=== PATIENT | female | born 1980 | race Caucasian/White ===

== ENCOUNTER 2022-04-22 05:12 | Inpatient (IN) | payer OTHER ==
[~2022-04-22 05:12] MED LIST: BENADRYL 50 MG/ML IV PRN; CLARITIN 10 MG PO PRN; LANSINOH 40 GM TOP PRN; Mylicon 80MG PO PRN; Nubain 10 MG/ML IV PRN; Pepcid 20 MG VIAL IV SCH; Reglan 10 MG/2 ML IV SCH; SOD CITRATE-CITRIC ACID SOLN PO SCH; Zofran 4 MG/2 ML VIAL IV PRN
[2022-04-22] MEDS ORDERED: TRANDATE 100MG/20 ML MDV IV ONE (06:22)
[2022-04-22] MEDS ORDERED: TRANDATE 100MG/20 ML MDV IV PRN ×2 (06:22)
[2022-04-22] MEDS ORDERED: TRANDATE 100 MG/20 ML MDV FOR DRIP IV ONE (06:29)
[2022-04-22 06:38] LABS: INR 0.92 (0.8-3.0); PROTIME 9.8 SECONDS (9.4-12.5); PTT 27.1 SECONDS (25.1-36.5)
[2022-04-22 07:03] LABS: Absolute Neutrophil Ct (ANC) 10.55 x10^3/uL (1.4-6.9); Basophil (Absolute #) 0.03 x10^3/uL (0-0.4); Eosinophil % 0.7 % (0.00-5.0); Hematocrit 35.8 % (35-47); Hemoglobin 11.8 g/dL (12.0-16.0); Lymphocyte (Absolute #) 2.21 x10^3/uL (1.0-4.6); Mean Cell Volume 90.4 fL (78-100); Mean Corpuscular Hemoglobin 29.8 pg (26-32); Mean Platelet Volume 10.3 fL (7.5-11.0); Monocytes % 5.8 % (0.0-12.0); Neutrophil % 76.7 % (36.0-66.0); Platelet Count 281 x10^3/uL (150-450); Red Blood Count 3.96 x10^6/uL (4.1-5.4); Red Cell Distribution Width 13.3 % (11.5-14.0); White Blood Count 13.8 x10^3/uL (4.0-10.5)
[2022-04-22] MEDS: Lactated Ringers 1,000 ML IV SCH (07:03)
[2022-04-22] MEDS ORDERED: Pepcid 20 MG VIAL IV ONE ×3 (07:11→09:57)
[2022-04-22] MEDS ORDERED: Reglan 10 MG/2 ML ONE (07:11)
[2022-04-22] MEDS ORDERED: SOD CITRATE-CITRIC ACID SOLN ONE (07:11)
[2022-04-22 07:18] LABS: ALBUMIN 3.5 g/dL (3.5-5.0); ALKALINE PHOSPHATASE 128 U/L (38-126); ANION GAP 11.3 MEQ/L (5-15); BLOOD UREA NITROGEN 12 mg/dL (7-17); CHLORIDE 106 mmol/L (98-107); Calcium 9.3 mg/dL (8.4-10.2); Carbon Dioxide 20 mmol/L (22-30); EST GLOMERULAR FILTRATION RATE > 60.0 ML/MIN; Glucose 131 mg/dL (74-106); Potassium 3.9 mmol/L (3.5-5.1); SGOT/AST 30 U/L (14-36); SGPT/ALT 20 U/L (0-35); SODIUM 133 mmol/L (137-145)
[2022-04-22] MEDS ORDERED: CEFAZOLIN 2 GM-D5W BAG** 2 GM/50 ML ML IV SCH (07:30)
[2022-04-22 07:38] LABS: Amphetamine,Urine NEGATIVE (NEGATIVE); Barbiturate,Urine NEGATIVE (NEGATIVE); Benzodiazepine,Urine NEGATIVE (NEGATIVE); Cocaine,Urine NEGATIVE (NEGATIVE); Methadone,Urine NEGATIVE (NEGATIVE); Opiate,Urine NEGATIVE (NEGATIVE); PCP,Urine NEGATIVE (NEGATIVE); THC,Urine NEGATIVE (NEGATIVE)
[2022-04-22 07:49] LABS: Creatinine, Urine Random 126.3 mg/dl; Protein Creatinine Ratio, Ran. 0.13 mg/mg (0.0-0.15)
[2022-04-22] MEDS ORDERED: Reglan 10 MG/2 ML IV ONE (09:44)
[2022-04-22] MEDS ORDERED: SOD CITRATE-CITRIC ACID SOLN PO ONE (09:45)
[2022-04-22] MEDS ORDERED: HOLD NARCOTIC ANALGESICS AND SEDATIVES X24 HR MC PRN (10:00)
[2022-04-22] MEDS ORDERED: PERCOCET TABLET 5/325MG PO PRN (10:00)
[2022-04-22] MEDS ORDERED: Narcan 0.4 MG/ML IV PRN (10:00)
[2022-04-22] MEDS ORDERED: Astramorph-Pf 5 MG/10 ML ONE (10:35)
[2022-04-22] MEDS ORDERED: Pitocin 10 UNITS/ML ONE ×2 (10:36→11:40)
[2022-04-22] MEDS ORDERED: Ephedrine Sulfate 50 MG/ML ONE (11:11)
[2022-04-22] MEDS ORDERED: Decadron 4 MG INJ ONE (11:26)
[2022-04-22] MEDS ORDERED: Marcaine 0.5%/Epinephrine 10 ML ONE (11:26)
[2022-04-22] MEDS ORDERED: TORAdol 30 mg Injection ONE (11:26)
[2022-04-22] MEDS ORDERED: Zofran 4 MG/2 ML VIAL ONE (12:15)
[2022-04-22] MEDS ORDERED: Lactated Ringers 2,000 ML IV ONE (12:16)
[2022-04-22 13:29] LABS: Appearance CLEAR (CLEAR); Bilirubin NEGATIVE (NEGATIVE); Blood TRACE NON-HEM Ery/ul (0-5); Glucose NEGATIVE (NEGATIVE); Ketones NEGATIVE (NEGATIVE); Leukocyte Esterase NEGATIVE (NEGATIVE); Nitrite NEGATIVE (NEGATIVE); Protein,Urine Dip NEGATIVE (Negative); Specific Gravity >=1.030 (1.005-1.025); Urobilinogen 0.2 mg/dL (0-1)
[2022-04-22 13:36] LABS: Epithelial Cells RARE /HPF (FEW); Mucus SLIGHT /HPF (NEGATIVE); WBC 0-2 /HPF (0-5)
[2022-04-22] MEDS ORDERED: Adacel Vial IM ONE (15:00)
[2022-04-22] MEDS ORDERED: KEFZOL 1 GM** 3 G in Sodium Chloride 0.9% 50 ML 50 ML IV ONE (19:00)
[2022-04-22] MEDS ORDERED: Dextrose 5%-Lr IV Solution 1000 ML 1,000 ML IV ONE (20:57)
[2022-04-22] MEDS: Adalat CC 30 MG TABLET PO SCH (20:59)
[2022-04-22] MEDS: Dextrose 5%-Lr IV Solution 1000 ML 1,000 ML IV SCH (21:05)
[2022-04-23] MEDS ORDERED: KEFZOL 1 GM** 3 G in Sodium Chloride 0.9% 50 ML 50 ML IV ONE (03:00)
[2022-04-23 05:38] LABS: Absolute Neutrophil Ct (ANC) 15.31 x10^3/uL (1.4-6.9); Basophil (Absolute #) 0.03 x10^3/uL (0-0.4); Eosinophil % 0.1 % (0.00-5.0); Eosinophil (Absolute #) 0.01 x10^3/uL (0-0.5); Hematocrit 29.6 % (35-47); Hemoglobin 9.7 g/dL (12.0-16.0); Lymphocyte (Absolute #) 1.86 x10^3/uL (1.0-4.6); Mean Cell Volume 91.6 fL (78-100); Mean Corpuscular Hgb Concent. 32.8 g/dL (32-36); Mean Platelet Volume 10.9 fL (7.5-11.0); Monocyte (Absolute #) 1.32 x10^3/uL (0.0-1.3); Monocytes % 7.1 % (0.0-12.0); Neutrophil % 82.1 % (36.0-66.0); Platelet Count 231 x10^3/uL (150-450); Red Blood Count 3.23 x10^6/uL (4.1-5.4); Red Cell Distribution Width 13.4 % (11.5-14.0); White Blood Count 18.6 x10^3/uL (4.0-10.5)
[2022-04-23] MEDS ORDERED: NORCO 5/325 MG PO PRN (08:00)
--- NOTE | 2022-04-23 08:08 | PCM.NOTE ---
Date and Time: 04/23/22804 Subjective Assessment: pod 1 sp csection pt resting in bed doing well ambulating and tolerating diet. vss afebrile abd; soft incision with dressing intact with minimal soiling uterus; firm lochia; mild hgb; 9.7 a/p sp csection with chronic htn will continue procardia anticipate discharge tomorrow OBJECTIVE DATA Vital Signs: Vital Signs - 24 hr Temp Pulse Resp BP BP Pulse Ox 04/23/22 07:00 97 04/23/22 06:24 97 04/23/22 06:00 98.8 F 73 18 157/83 98 04/23/22 04:52 96 04/23/22 04:00 96 04/23/22 03:00 98.5 F 67 18 136/63 97 04/23/22 02:00 96 04/23/22 01:00 96 04/23/22 00:00 96 04/22/22 23:55 98.4 F 61 20 159/72 96 04/22/22 23:00 96 04/22/22 22:00 97 04/22/22 21:00 98.6 F 69 20 187/82 97 04/22/22 20:00 97 04/22/22 19:00 97 04/22/22 18:00 97 04/22/22 17:25 54 L 154/68 97 04/22/22 17:00 52 L 139/63 97 04/22/22 16:00 97 04/22/22 15:00 52 L 20 139/63 98 04/22/22 14:15 58 L 20 123/59 98 04/22/22 14:00 58 L 20 119/57 97 04/22/22 13:30 67 18 150/74 98 04/22/22 13:00 52 L 18 142/68 98 04/22/22 10:00 143/70 04/22/22 08:45 65 142/82 201/98 97 04/22/22 08:30 56 L 142/66 142/66 04/22/22 08:11 65 142/82 97 Pain Assessment - Last Documented Pain Intensity [Bilateral 1 Lower] Pain Intensity 1 Pain Scale Used 0-10 Pain Scale Intake and Output: Intake & Output 04/20/22 04/21/22 04/22/22 04/23/22 11:59 11:59 11:59 11:59 Intake Total 1999 372 Output Total 3250 Balance 1999 47 Weight 129.5 kg Lab Results: Lab Results-Last 24 Hours 04/22/22 04/23/22 Range/Units 13:10 04:22 WBC 18.6 H (4.0-10.5) x10^3/uL RBC 3.23 L (4.1-5.4) x10^6/uL Hgb 9.7 L (12.0-16.0) g/dL Hct 29.6 L (35-47) % MCV 91.6 (78-100) fL MCH 30.0 (26-32) pg MCHC 32.8 (32-36) g/dL RDW 13.4 (11.5-14.0) % Plt Count 231 (150-450) x10^3/uL MPV 10.9 (7.5-11.0) fL Gran % 82.1 H (36.0-66.0) % Immature Gran % (Auto) 0.5 H (0.00-0.4) % Nucleat RBC Rel Count 0.0 (0.00-0.1) % Eos # (Auto) 0.01 (0-0.5) x10^3/uL Immature Gran # (Auto) 0.10 H (0.00-0.03) x10^3u/L Absolute Lymphs (auto) 1.86 (1.0-4.6) x10^3/uL Absolute Monos (auto) 1.32 H (0.0-1.3) x10^3/uL Absolute Nucleated RBC 0.00 (0.00-0.01) x10^3u/L Lymphocytes % 10.0 L (24.0-44.0) % Monocytes % 7.1 (0.0-12.0) % Eosinophils % 0.1 (0.00-5.0) % Basophils % 0.2 (0.0-0.4) % Absolute Granulocytes 15.31 H (1.4-6.9) x10^3/uL Basophils # 0.03 (0-0.4) x10^3/uL Urine Color YELLOW (YELLOW) Urine Appearance CLEAR (CLEAR) Urine pH 6.0 (5-6) Ur Specific [place] >=1.030 (1.005-1.025) Urine Protein NEGATIVE (Negative) Urine Ketones NEGATIVE (NEGATIVE) Urine Blood TRACE NON-HEM (0-5) Luis/ul Urine Nitrite NEGATIVE (NEGATIVE) Urine Bilirubin NEGATIVE (NEGATIVE) Urine Urobilinogen 0.2 (0-1) mg/dL Ur Leukocyte Esterase NEGATIVE (NEGATIVE) Urine WBC (Auto) 0-2 (0-5) /HPF Urine RBC (Auto) 6-10 A (0-2) /HPF U Epithel Cells (Auto) RARE (FEW) /HPF Urine Bacteria (Auto) NONE (NEGATIVE) /HPF Urine Mucus (Auto) SLIGHT A (NEGATIVE) /HPF Urine Glucose NEGATIVE (NEGATIVE) mg/dL Multi-Disciplinary Progress Notes: Multi-Disciplinary Progress Notes 04/22/22 12:26 Respiratory Note by Celia Somers RT PRESENT DURING C SECTION. APPROXIMATELY 7CC OF FLUID SUCTIONED FROM AIRWAY VIA DELEE. NO OTHER RESPIRATORY INTERVENTIONS REQUIRED. Initialized on 04/22/22 12:26 - END OF NOTE Assessment/Plan (1) Gestational hypertension Current Visit: Yes Status: Acute Code(s): O13.9 - GESTATIONAL HTN W/O SIGNIFICANT PROTEINURIA, UNSP TRIMESTER (2) Status post repeat low transverse section Current Visit: Yes Status: Acute Code(s): Z98.891 - HISTORY OF UTERINE SCAR FROM PREVIOUS SURGERY
--- NOTE | 2022-04-23 08:49 | OP ---
SURGERY DATE/TIME: 04/22/2022 1042 PREOPERATIVE DIAGNOSIS: Intrauterine at 37 weeks and 2 days gestation with history of chronic hypertension, previous section x2 for repeat section and tubal sterilization. POSTOPERATIVE DIAGNOSIS: Intrauterine at 37 weeks and 2 days gestation with history of chronic hypertension, previous section x2 for repeat section and tubal sterilization. PROCEDURES: 1) Repeat section, low flap transverse uterine incision, Pfannenstiel skin incision. 2) Bilateral tubal sterilization. SURGEON: Edin Javed D.O. SENIOR PROJECT MANAGER ENGINEERING: Kimberli Nugent, validation technician. ANESTHESIA: Spinal. ESTIMATED BLOOD LOSS: 400 cc. COMPLICATIONS: None. INDICATIONS: The risks, benefits, indications and alternatives of the procedure were reviewed with the patient prior to procedure. The patient understood the risk of infection, bleeding, bowel injury, bladder injury, ureteral injury, pelvic infection, thromboembolic disorder associated with this surgery and desires to have this surgery as a possible means to alleviate her current medical condition. The patient also understood the risk of future and ectopic that may be associated with this procedure. DESCRIPTION OF PROCEDURE AND FINDINGS: From this point the patient is taken to the operating room where her spinal anesthesia was found to adequate. She was then prepared and draped in normal sterile fashion in the dorsal supine position with leftward tilt. A Pfannenstiel skin incision is made with a scalpel and carried through to the underlying layer of the fascia with a Bovie. The fascia was then incised in the midline and the incision extended laterally with Swenson scissors. The superior aspect of the fascial incision was then grasped Gisela clamps elevated and the underlying rectus muscles dissected off bluntly. Attention is then turned to the inferior aspect of this incision which in similar fashion was grasped, tented up with Gisela clamps and the rectus muscles were dissected off bluntly. The rectus muscles were then in the midline and the peritoneum identified, tented up and entered sharply with Metzenbaum scissors. The peritoneal incision was then extended superiorly and inferiorly with good visualization of the bladder. The bladder blade was then inserted and the vesicouterine peritoneum identified, grasped with pickups and entered sharply with Metzenbaum scissors. This incision was then extended laterally and bladder flap created digitally. A bladder blade was then reinserted in the lower uterine segment and excised with transverse fashion with a scalpel. The uterus was then extended laterally with bandage scissors. The bladder blade was then removed and the infants head was delivered atraumatically and was noted to have nuchal cord x1 which was reduced. The nose and mouth were suctioned with bulb suction and the cord clamped and cut. The infant was then handed off to the awaiting nurses. The placenta was then removed manually. The uterus exteriorized and cleared of all clots and debris. The uterine incision was repaired with 1-0 chromic in running locked fashion. A second layer of the same suture was used to obtain excellent hemostasis. From this point a Dewayne clamp was placed approximately 4 cm from the cornual region of the uterus and a 3 cm segment of the tube was then ligated with free tie of plain gut and excised. Good hemostasis was assured. The same procedure was performed on the right tube where the Dewayne clamp was then used to grasp tube approximately 4 cm from the cornual region and again a 3 cm segment of tube was then ligated with free tie of plain gut and excised. Again, good hemostasis was assured. From this point, the gutters were cleared of all clots. The uterus then reinserted into the abdomen. From this point the peritoneal muscles were closed in interrupted fashion using 2-0 chromic suture. The fascia was re-approximated with 0 Vicryl in a running fashion. The subcutaneous layer was closed with 3-0 Vicryl suture and the skin was closed with absorbable saurav called INSORB. The patient tolerated the procedure well. Sponge, lap, needle and instrument counts were correct x2. The patient was then taken to the recovery room in stable condition. The patient delivered a live baby boy at 1119 hours. 's 8 at 1 minute and 9 at 5 minutes. The weight of the baby was 6 pounds 5 ounces.
[2022-04-23 09:17] LABS: HBsAg Screen Negative (Negative)
[2022-04-23] MEDS: Docusate Sodium 100 MG PO SCH ×4 (09:30→21:01)
[2022-04-23] MEDS: FERREX 150 PO SCH ×2 (09:31→20:52)
[2022-04-23] MEDS ORDERED: ENOXAPARIN SODIUM SQ ONE (10:00)
[2022-04-23] MEDS: TYLENOL EXTRA STRENGTH 500 MG PO PRN (14:42)
[2022-04-23] MEDS: Lactated Ringers 1,000 ML IV SCH (20:48)
[2022-04-23] MEDS: Dextrose 5%-Lr IV Solution 1000 ML 1,000 ML IV SCH (20:51)
[2022-04-23] MEDS: Adalat CC 30 MG TABLET PO SCH (20:52)
[2022-04-23] MEDS: MOTRIN 400 MG PO PRN (21:01)
[2022-04-23] MEDS ORDERED: Adalat CC 30 MG TABLET PO SCH (22:00)
[2022-04-24] MEDS: TYLENOL EXTRA STRENGTH 500 MG PO PRN (01:16)
--- NOTE | 2022-04-24 07:48 | PCM.NOTE ---
Date and Time: 04/24/22 0746 Subjective Assessment: pod 2 sp csection pt resting in bed and doing well ambulating and tolerating diet. vss afebrile abd; soft incision with dressing intact with no soiling uterus; firm lochia;mild a/p sp csection with tubal sterilization pod 2 dc home today fu office 1 wk OBJECTIVE DATA Vital Signs: Vital Signs - 24 hr Temp Pulse Resp BP BP Pulse Ox 04/24/22 02:00 98.3 F 69 18 138/65 97 04/23/22 19:45 98.3 F 84 19 138/60 97 04/23/22 16:00 98.0 F 68 20 133/65 98 04/23/22 12:00 98.0 F 73 20 138/63 98 04/23/22 11:00 98 04/23/22 10:00 98 04/23/22 09:00 97 04/23/22 08:00 98.3 F 72 20 123/59 96 Pain Assessment - Last Documented Pain Intensity [Bilateral 1 Lower] Pain Intensity 0 Pain Scale Used 0-10 Pain Scale Intake and Output: Intake & Output 04/21/22 04/22/22 04/23/22 04/24/22 11:59 11:59 11:59 11:59 Intake Total 1999 3722 1080 Output Total 3250 Balance 1999 472 1080 Weight 129.5 kg Lab Results: Lab Results-Last 24 Hours 04/22/22 Range/Units 05:44 Hep Bs Antigen Negative (Negative) Assessment/Plan (1) Gestational hypertension Current Visit: Yes Status: Acute Code(s): O13.9 - GESTATIONAL HTN W/O SIGNIFICANT PROTEINURIA, UNSP TRIMESTER (2) Status post repeat low transverse section Current Visit: Yes Status: Acute Code(s): Z98.891 - HISTORY OF UTERINE SCAR FROM PREVIOUS SURGERY
--- NOTE | 2022-04-24 07:50 | PCM.DS ---
Discharge Summary Date of Admission: 04/22/22 05:12 Admitting Physician: ALPHONSO PARSONS DO Consults: Consults on Case 04/21/22 18:41 Notify Physician OF ADMISSION 04/21/22 18:56 Notify Anesthesia Provider PRN 04/22/22 06:12 Navigation ONCE Primary Care Provider: NELSON ARIAS NP Allergies Allergies prochlorperazine edisylate [From Compazine] Allergy (Mild, Verified 04/23/22 20:57) prochlorperazine maleate [From Compazine] Allergy (Mild, Verified 04/23/22 20:57) promethazine HCl [From Phenergan] Allergy (Mild, Verified 04/23/22 20:57) Hospital Summary - Hospital Course Hospital Course: pt admitted on apr 22 for repeat csection with tubal sterilization for chronic htn on procardia and underwent procedure without complication. during postop period did well and stable hgb at 9.7. pt at this time stable for discharge and was advised to fu in office in 1 wk. declines narcotic for pain management at this time. - Vitals & Intake/Output Vital Signs: Vital Signs Temperature 98.3 F 04/24/22 02:00 Pulse Rate 69 04/24/22 02:00 Respiratory Rate 18 04/24/22 02:00 Blood Pressure 138/65 04/24/22 02:00 O2 Sat by Pulse Oximetry 97 04/24/22 02:00 Intake & Output: Intake & Output 04/21/22 04/22/22 04/23/22 04/24/22 11:59 11:59 11:59 11:59 Intake Total 1999 3722 1080 Output Total 0 Balance 1999 472 1080 Weight 129.5 kg - Lab Result Diagrams: 04/23/22 04:22 04/22/22 05:44 Lab Results-Last 24 Hrs: Lab Results-Last 24 Hours 04/22/22 Range/Units 05:44 Hep Bs Antigen Negative (Negative) Micro Results-Entire Visit: Microbiology 04/22/22 13:10 Urine Culture - Preliminary Catherized NO GROWTH TO DATE - Procedures and Test Procedures and Tests throughout Hospitalization: Therapy Orders & Screens 04/22/22 12:27 Standby ROUTINE Comment: Diagnosis: IUP Final Diagnosis/Problem List - Final Discharge Diagnosis/Problem (1) Gestational hypertension Current Visit: Yes Status: Acute Code(s): O13.9 - GESTATIONAL HTN W/O SIGNIFICANT PROTEINURIA, UNSP TRIMESTER (2) Status post repeat low transverse section Current Visit: Yes Status: Acute Code(s): Z98.891 - HISTORY OF UTERINE SCAR FROM PREVIOUS SURGERY - Discharge Disposition: Home, Self-Care Condition: Stable Prescriptions: No Action NIFEdipine [Nifedipine ER] See Rx Instructions .ROUTE .COMPLEX Aspirin 81 gm Chew [Baby Aspirin 81 mg Chew] 81 mg PO DAILY Follow up with: NELSON ARIAS ADDICTION COUNSELOR [Primary Care Provider] - ALPHONSO PARSONS DO [ACTIVE STAFF] - 1 Week (keep incision clean and dry)
[2022-04-24] MEDS: Docusate Sodium 100 MG PO SCH (08:56)
[2022-04-24] MEDS: FERREX 150 PO SCH (08:56)
[2022-04-24] MEDS: MOTRIN 400 MG PO PRN (10:00)
[2022-04-24 13:06] VITALS: BP 145/85
[2022-04-24 14:38] VITALS: PULSE 73; O2SAT 99
== END 2022-04-24 10:10 | disposition home or self-care (01) | DRG 785 ==
LOC: OB 05:12
PROVIDERS: ADMIT Obstetrics & Gynecology; ATTEND Obstetrics & Gynecology
PROC: 10D00Z1 Extraction of Products of Conception, Low, Open Approach (ICD-10-PCS; principal; 2022-04-22)
PROC: 0UB70ZZ Excision of Bilateral Fallopian Tubes, Open Approach (ICD-10-PCS; 2022-04-22)
DX: O13.4 Gestational [pregnancy-induced] hypertension without significant proteinuria, complicating childbirth (principal); Z3A.37 37 weeks gestation of pregnancy; Z37.0 Single live birth; Z30.2 Encounter for sterilization; Z20.828 Contact with and (suspected) exposure to other viral communicable diseases
CPT/HCPCS: 36415; 58700; 59510; 62322; 64488; 76937; 76942; 80053; 80307; 81001; 82570; 84156; 84550; 85025; 85610; 85730; 86901; 87086; 87340; 90471; 90715; 94799; J0690; J1100; J1650; J1885; J2274; J2405; J2590; L0625; A9270-GY

== ENCOUNTER 2023-06-10 14:15 | Emergency (ER) | payer OTHER ==
[2023-06-10 14:31] VITALS: TEMP 97.4
[2023-06-10 15:56] VITALS: RESP 16; O2SAT 98
[2023-06-10 16:14] LABS: Absolute Neutrophil Ct (ANC) 5.16 x10^3/uL (1.4-6.9); BASOPHIL % 0.5 % (0.0-0.4); Basophil (Absolute #) 0.04 x10^3/uL (0-0.4); Eosinophil % 1.2 % (0.00-5.0); Hematocrit 38.9 % (35-47); Hemoglobin 12.6 g/dL (12.0-16.0); IMMATURE GRAN # 0.04 x10^3u/L (0.00-0.03); IMMATURE GRAN % 0.5 % (0.00-0.4); Lymphocytes % 28.9 % (24.0-44.0); Mean Cell Volume 88.6 fL (78-100); Mean Corpuscular Hemoglobin 28.7 pg (26-32); Mean Corpuscular Hgb Concent. 32.4 g/dL (32-36); Mean Platelet Volume 9.2 fL (7.5-11.0); Monocyte (Absolute #) 0.56 x10^3/uL (0.0-1.3); Monocytes % 6.7 % (0.0-12.0); Neutrophil % 62.2 % (36.0-66.0); Platelet Count 297 x10^3/uL (150-450); Red Blood Count 4.39 x10^6/uL (4.1-5.4); White Blood Count 8.3 x10^3/uL (4.0-10.5)
--- NOTE | 2023-06-10 16:25 | XRAY ---
Indication: Hypertension. Comparison: October 10, 2012 Portable chest again demonstrates normal heart and lungs. Bony thorax intact with mild degenerative changes. No new/acute findings.
[2023-06-10 16:32] LABS: HCG SERUM TEST NEGATIVE (NEGATIVE)
[2023-06-10 16:36] LABS: ALBUMIN 4.5 g/dL (3.5-5.0); ANION GAP 8.7 MEQ/L (5-15); BILIRUBIN,TOTAL 0.3 mg/dL (0.2-1.3); Calcium 9.1 mg/dL (8.4-10.2); Creatinine 1 0.72 mg/dL (0.52-1.04); NT PRO BNPII 70.8 pg/mL (<300); Potassium 3.8 mmol/L (3.5-5.1); Total Protein 7.9 g/dL (6.3-8.2)
[2023-06-10] MEDS ORDERED: CLONIDINE 0.1 MG TABLET ONE (17:54)
[2023-06-10] MEDS: CLONIDINE 0.1 MG TABLET PO ONE (17:55)
--- NOTE | 2023-06-10 18:25 | ERPHSYRPT ---
- History of Present Illness Time Seen by Provider: 06/10/23 14:40 Source: patient Exam Limitations: no limitations Patient Subjective Stated Complaint: pt here for htn today with a headache and feeling shaky, took her b/p pill at 1200 today, she states she is feeling sum what better, but clinic wanted her to be seen here Triage Nursing Assessment: pt walked in, resp easy, skin w/d/p. skin w/d/p, no edema noted, chest clear Physician History: 42 years old female with history of hypertension on lisinopril HCTZ 20-12.5 mg, history of headaches almost once a week presented in the ER with complains of headache for the last couple of days and earlier it was worse, she forgot to take her routine blood pressure medication this morning and took it around noon time. Later on she started to feel very feeling in the chest which lasted for good 10 to 15 minutes and improved. She was at urgent care and is sent in here for further evaluation. Patient reports her headache is improved. When her headache was bad her blood pressure was in 190s. It is in 150s at present. She denies any blurry vision, numbness tingling focal weakness, difficulty speech during this whole time. She denies any palpitations or difficulty breathing. She denies any chest pain currently. Denies any history of coronary artery disease. Denies any known sick contact. Allergies/Adverse Reactions: prochlorperazine edisylate [From Compazine] Allergy (Mild, Verified 06/10/23 14:31) prochlorperazine maleate [From Compazine] Allergy (Mild, Verified 06/10/23 14:31) promethazine HCl [From Phenergan] Allergy (Mild, Verified 06/10/23 14:31) Home Medications: Lisinopril/Hydrochlorothiazide [Lisinopril-Hctz 20-12.5 mg Tab] 1 each PO DAILY 06/10/23 [History] Hx Tetanus, Diphtheria Vaccination/Date Given: No Hx Influenza Vaccination/Date Given: No Hx Pneumococcal Vaccination/Date Given: No Immunizations Up to Date: Yes Travel Risk - International Travel Have you traveled outside of the country in past 3 weeks: No - Coronavirus Screening Are you exhibiting any of the following symptoms?: No Close contact with a COVID-19 positive Pt in past 14-21 Days: No - Vaccine Status Have you recieved a Covid-19 vaccination: No - Review of Systems Constitutional: No Symptoms Eyes: No Symptoms Ears, Nose, & Throat: No Symptoms Respiratory: No Symptoms Cardiac: No Symptoms Abdominal/Gastrointestinal: No Symptoms Genitourinary Symptoms: No Symptoms Musculoskeletal: No Symptoms Skin: No Symptoms Neurological: Headache Endocrine: No Symptoms Hematologic/Lymphatic: No Symptoms - Past Medical History Pertinent Past Medical History: Yes Neurological History: No Pertinent History ENT History: No Pertinent History Cardiac History: No Pertinent History Respiratory History: No Pertinent History Endocrine Medical History: No Pertinent History Musculoskeletal History: No Pertinent History GI Medical History: Hemorrhoids History: No Pertinent History Psycho-Social History: No Pertinent History Female Reproductive Disorders: No Pertinent History Other Medical History: PCOS - Past Surgical History Past Surgical History: Yes (2 c sections and dc) Neuro Surgical History: No Pertinent History Cardiac: No Pertinent History Respiratory: No Pertinent History Gastrointestinal: No Pertinent History Genitourinary: No Pertinent History Musculoskeletal: No Pertinent History Female Surgical History: Dilation & Curettage, Section Other Surgical History: D&C, x2 - Social History Smoking Status: Never smoker Exposure to second hand smoke: No Drug Use: none Patient Lives Alone: No Significant Family History: stroke - Female History Hx Last Menstrual Period: mar Hx Now: No - Nursing Vital Signs Nursing Vital Signs: Initial Vital Signs Temperature 97.4 F 06/10/23 14:30 Pulse Rate 66 06/10/23 14:30 Respiratory Rate 18 06/10/23 14:30 Blood Pressure 218/86 06/10/23 14:30 O2 Sat by Pulse Oximetry 99 06/10/23 14:30 Pain Scale Pain Intensity 0 - Physical Exam General Appearance: no apparent distress, alert Eye Exam: PERRL/EOMI Ears, Nose, Throat Exam: normal ENT inspection, TMs normal, pharynx normal, moist mucous membranes Neck Exam: normal inspection, non-tender, supple, full range of motion Respiratory Exam: normal breath sounds, lungs clear Cardiovascular Exam: regular rate/rhythm, normal heart sounds Gastrointestinal/Abdomen Exam: soft, normal bowel sounds, No tenderness Back Exam: normal inspection, normal range of motion Extremity Exam: normal inspection, normal range of motion Neurologic Exam: alert, oriented x 3, cooperative, respiratory manager II-XII nml as tested, normal mood/affect, nml cerebellar function, nml station & gait, sensation nml, other (2+ symmetric reflexes in upper and lower extremities), No motor deficits Skin Exam: normal color SpO2 Interpretation: normal SpO2: 98 O2 Delivery: Room Air - Course EKG Interpreted by Me: RATE (70), Sinus Rhythm, NORMAL AXIS, NORMAL INTERVALS Ordered Tests: Medication Summary Discontinued Medications Generic Name Dose Route Start Last Admin Trade Name Usman PRN Reason Stop Dose Admin Clonidine 0.2 mg 06/10/23 17:44 06/10/23 17:55 Clonidine Hcl 0.1 Mg Tablet PO 06/10/23 17:45 0.2 mg STAT ONE Administration Clonidine Confirm 06/10/23 17:54 Clonidine Hcl 0.1 Mg Tablet Administered 06/10/23 17:55 Dose 0.2 mg .ROUTE .Zolpy-MED ONE Lab/Rad Data: Laboratory Result Diagrams 06/10/23 15:24 06/10/23 15:24 Laboratory Results 06/10/23 06/10/23 06/10/23 Range/Units 18:00 16:25 15:30 WBC (4.0-10.5) x10^3/uL RBC (4.1-5.4) x10^6/uL Hgb (12.0-16.0) g/dL Hct (35-47) % MCV (78-100) fL MCH (26-32) pg MCHC (32-36) g/dL RDW (11.5-14.0) % Plt Count (150-450) x10^3/uL MPV (7.5-11.0) fL Gran % (36.0-66.0) % Immature Gran % (Auto) (0.00-0.4) % Nucleat RBC Rel Count (0.00-0.1) % Eos # (Auto) (0-0.5) x10^3/uL Immature Gran # (Auto) (0.00-0.03) x10^3u/L Absolute Lymphs (auto) (1.0-4.6) x10^3/uL Absolute Monos (auto) (0.0-1.3) x10^3/uL Absolute Nucleated RBC (0.00-0.01) x10^3u/L Lymphocytes % (24.0-44.0) % Monocytes % (0.0-12.0) % Eosinophils % (0.00-5.0) % Basophils % (0.0-0.4) % Absolute Granulocytes (1.4-6.9) x10^3/uL Basophils # (0-0.4) x10^3/uL Sodium (137-145) mmol/L Potassium (3.5-5.1) mmol/L Chloride (98-107) mmol/L Carbon Dioxide (22-30) mmol/L Anion Gap (5-15) MEQ/L BUN (7-17) mg/dL Creatinine (0.52-1.04) mg/dL Estimated GFR ML/MIN Glucose (74-106) mg/dL Calcium (8.4-10.2) mg/dL Total Bilirubin (0.2-1.3) mg/dL AST (14-36) U/L ALT (0-35) U/L Alkaline Phosphatase (38-126) U/L Creatine Kinase (30-135) U/L Troponin I < 0.012 < 0.012 (0.000-0.034) ng/mL NT-Pro-B Natriuret Pep (<300) pg/mL Serum Total Protein (6.3-8.2) g/dL Albumin (3.5-5.0) g/dL Serum HCG, Qual NEGATIVE (NEGATIVE) 06/10/23 06/10/23 Range/Units 15:24 15:24 WBC 8.3 (4.0-10.5) x10^3/uL RBC 4.39 (4.1-5.4) x10^6/uL Hgb 12.6 (12.0-16.0) g/dL Hct 38.9 (35-47) % MCV 88.6 (78-100) fL MCH 28.7 (26-32) pg MCHC 32.4 (32-36) g/dL RDW 13.0 (11.5-14.0) % Plt Count 297 (150-450) x10^3/uL MPV 9.2 (7.5-11.0) fL Gran % 62.2 (36.0-66.0) % Immature Gran % (Auto) 0.5 H (0.00-0.4) % Nucleat RBC Rel Count 0.0 (0.00-0.1) % Eos # (Auto) 0.10 (0-0.5) x10^3/uL Immature Gran # (Auto) 0.04 H (0.00-0.03) x10^3u/L Absolute Lymphs (auto) 2.40 (1.0-4.6) x10^3/uL Absolute Monos (auto) 0.56 (0.0-1.3) x10^3/uL Absolute Nucleated RBC 0.00 (0.00-0.01) x10^3u/L Lymphocytes % 28.9 (24.0-44.0) % Monocytes % 6.7 (0.0-12.0) % Eosinophils % 1.2 (0.00-5.0) % Basophils % 0.5 (0.0-0.4) % Absolute Granulocytes 5.16 (1.4-6.9) x10^3/uL Basophils # 0.04 (0-0.4) x10^3/uL Sodium 138 (137-145) mmol/L Potassium 3.8 (3.5-5.1) mmol/L Chloride 103 (98-107) mmol/L Carbon Dioxide 30 (22-30) mmol/L Anion Gap 8.7 (5-15) MEQ/L BUN 16 (7-17) mg/dL Creatinine 0.72 (0.52-1.04) mg/dL Estimated GFR 107.0 ML/MIN Glucose 102 (74-106) mg/dL Calcium 9.1 (8.4-10.2) mg/dL Total Bilirubin 0.30 (0.2-1.3) mg/dL AST 26 (14-36) U/L ALT 20 (0-35) U/L Alkaline Phosphatase 74 (38-126) U/L Creatine Kinase 323 H (30-135) U/L Troponin I (0.000-0.034) ng/mL NT-Pro-B Natriuret Pep 70.8 (<300) pg/mL Serum Total Protein 7.9 (6.3-8.2) g/dL Albumin 4.5 (3.5-5.0) g/dL Serum HCG, Qual (NEGATIVE) - Progress Progress: improved Progress Note: 06/10/23 18:52 46 years old is evaluated in the ER for uncontrolled hypertension, headache and some uneasy feeling in the chest earlier which is improved. Headache is much improved as well and she does not want any medication for it. She has a nonfocal neuroexam throughout stay in the ER. EKG is normal sinus rhythm with no acute ischemic changes and negative troponins. Patient blood pressure was in 150s, later on it was again 178 systolic, I have given her clonidine added and improved. Chest x-ray negative for any acute cardiopulmonary findings. Normal white count and fairly unremarkable chemistries. Patient has history of regular headaches once a week almost, I believe she has history of migraine and needs to be on prophylactic medication. Headache could be the cause of her elevation in blood pressure or vice versa. I would give her clonidine to take as needed if blood pressure is greater than 160s, recommended keeping a log and follow-up with primary care for reevaluation to see if needs adjustment in dose of m edications. I do not think she needs any other workup or needs to be admitted. With nonfocal neuroexam, similar headaches in the past, do not think needs CT head or any other neurowork-up. Recommended outpatient follow-up. Discussed signs symptoms of worsening needing return to ER which she seems understanding. Stable for discharge. Counseled pt/family regarding: lab results, diagnosis, need for follow-up, rad results Medical Desision Making - Diagnostic Testing Diagnostic test were ordered, analyzed, and reviewed by me: Yes Radiological Interpretation: Reviewed by me - Risk of complications The pt has a mod risk of morbidity or mortality based on: Need for prescription drug management - Departure Departure Disposition: Home Clinical Impression: Uncontrolled hypertension, Headache, Atypical chest pain Condition: Stable Critical Care Time: No Referrals: ANDREW CORADO NP [Primary Care Provider] - Follow up with PCP 1 day Instructions: Headache, Adult (DC), Malignant Hypertension (DC) Additional Instructions: Take Tylenol/ibuprofen as needed for headache. Follow-up with your primary care for reevaluation and may need referral for neurology for further evaluation if continues to have weekly headaches to be placed on prophylactic medications and further evaluation of cause of headaches. Return to ER for intractable he adache, numbness tingling focal weakness, visual disturbance or if having chest pain palpitations or shortness of breath. Take clonidine only as needed if blood pressure more than 160 systolic and do not take more than 2 pills in 24 hours.. Keep a blood pressure log and follow-up with PCP for reevaluation to see if needs adjustment in dose of your blood pressure medications. Prescriptions: Clonidine HCl 0.1 mg [Clonidine 0.1 mg Tablet] 0.1 mg PO Q12H PRN PRN 10 Days #10 tablet PRN Reason: Hypertension
[2023-06-10 18:57] VITALS: BP 133/81; PULSE 68
== END 2023-06-10 19:01 | disposition home or self-care (01) ==
LOC: ED 14:15
DX: I10 Essential (primary) hypertension (principal); R51.9 Headache, unspecified; R07.89 Other chest pain; Z79.899 Other long term (current) drug therapy; Z28.310 Unvaccinated for COVID-19
CPT/HCPCS: 36000; 36415; 71045; 80053; 82550; 83880; 84484; 84703; 85025; 93005; 93041; 99284; A9270-GY